=== PATIENT | male | born 1975 | race African-American/Black ===

== ENCOUNTER 2020-04-19 16:14 | Outpatient (REF) | payer OTHER, SELFPAY | END 2020-04-19 16:15 | disposition home or self-care (01) | LOC: HO.LAB 16:14 | PROVIDERS: PCP Internal Medicine; Visit Provider Internal Medicine | DX: Z20.828 Contact with and (suspected) exposure to other viral communicable diseases (principal) | CPT/HCPCS: 87635 ==

== ENCOUNTER 2020-09-05 10:39 | Outpatient (REF) | payer OTHER, SELFPAY ==
[2020-09-05 11:27] LABS: MANUAL DIFF FLAG NO
[2020-09-05 11:30] LABS: Glucose Urine UA NEG (NEG); Leukocyte Esterase Urine NEG (NEG); Nitrite Urine NEG (NEG); PH 8.5 (5.0-8.0); Urine Blood NEG (NEG); Urine Ketones NEG (NEG); Urine Protein NEG (NEG-TRACE)
[2020-09-05 11:33] LABS: Appearance Urine CLEAR; Color Urine YELLOW
[2020-09-05 11:34] LABS: Basophils Percent Auto 0.5 % (0-2); Hematocrit 44.9 % (42-52); Hemoglobin 14.9 g/dl (14.0-18.0); Imm Gran Abs Auto 0.01 X10*3/uL (0.00-0.03); Imm Gran Pct Auto 0.2 % (0.0-0.4); Lymphocytes Absolute Auto 1.6 X10*3/uL (1.2-4.9); Lymphocytes Percent Auto 38.2 % (20-40); Mean Corpuscular HGB Conc 33.2 g/dl (31.0-36.0); Mean Corpuscular Hemoglobin 27.7 pg (27.0-33.0); Mean Corpuscular Volume 83.6 fL (80-98); Mean Platelet Volume 10.2 fL (9.4-12.4); Monocytes Absolute Auto 0.5 X10*3/uL (0.1-1.2); Monocytes Percent Auto 10.9 % (2-11); Neutrophils Percent Auto 49.2 % (45-73); Platelet Count 241 X10*3/uL (160-400); Red Blood Count 5.37 X10*6/uL (4.60-5.80); Red Cell Distribution Width 12.4 % (11.0-16.0); White Blood Count 4.1 X10*3/uL (4.8-10.8)
[2020-09-05 12:22] LABS: Alanine Aminotransferase 21 U/L (0-40); Albumin Level 4.2 g/dL (3.5-5.0); Alkaline Phosphatase 54 U/L (39-117); Anion Gap 11 (12-20); Aspartate Amino Transferase 26 U/L (5-37); Bilirubin Total 0.5 mg/dL (0.0-1.0); Blood Urea Nitrogen 12 mg/dL (9-16); C Reactive Protein 0.05 mg/dL (< or = 0.50); Calcium 9.4 mg/dL (8.4-10.2); Carbon Dioxide 30 mmol/L (22-29); Chloride 104 mmol/L (96-108); Estimated Glomerular Filt Rate > 60; Glucose Random 98 mg/dL (60-115); Lipase 36 U/L (8-78); Sodium 140 mmol/L (135-145); Total Protein 7.6 g/dL (6.5-8.0)
[2020-09-07 15:16] LABS: Transglutaminase Ab IgG 8 U/mL
[2020-09-08 13:26] LABS: Gliadin Deamidated IgA Ab 4 Units; Gliadin Deamidated IgG Ab 3 Units
== END 2020-09-05 10:40 | disposition home or self-care (01) ==
LOC: HO.LAB 10:39
PROVIDERS: PCP Internal Medicine; Visit Provider Internal Medicine
DX: R10.9 Unspecified abdominal pain (principal); K21.9 Gastro-esophageal reflux disease without esophagitis; R30.0 Dysuria
CPT/HCPCS: 36415; 80053; 81003; 83516; 83690; 85025; 86140; 87086

== ENCOUNTER 2020-12-19 14:00 | Outpatient (REF) | payer OTHER, SELFPAY ==
--- NOTE | ~2020-12-19 | XR_ITS ---
EXAMINATION: XR PELVIS CLINICAL INFORMATION: Abdominal pain and back pain COMPARISON: Lumbar spine May [address] of the abdomen and pelvis April 2014 TECHNIQUE: AP view of the pelvis. FINDINGS: Bone alignment is normal. No fracture or dislocation is seen. The joint spaces are normal. There is stool in the colon. There is a small 2 x 4 mm radiopaque density that projects over the right lower pelvis and rectum. It is uncertain whether this represents something in the stool or could represent a small UVJ or bladder stone. This is not seen on previous lumbar spine x-ray May [address] of the abdomen and pelvis April 2014. XR/XR pelvis 1-2V IMPRESSION: Normal bones of the pelvis. 2 x 4 mm density in the right pelvis, question possible right UVJ or bladder stone versus something in the stool.
[2020-12-19 15:12] LABS: MANUAL DIFF FLAG NO
[2020-12-19 15:15] LABS: Basophils Percent Auto 0.7 % (0-2); Eosinophils Absolute Auto 0.1 X10*3/uL (0.0-0.4); Eosinophils Percent Auto 1.4 % (0-4); Hematocrit 41.4 % (42-52); Hemoglobin 13.7 g/dl (14.0-18.0); Lymphocytes Absolute Auto 1.7 X10*3/uL (1.2-4.9); Lymphocytes Percent Auto 39.6 % (20-40); Mean Corpuscular HGB Conc 33.1 g/dl (31.0-36.0); Mean Corpuscular Hemoglobin 27.7 pg (27.0-33.0); Mean Corpuscular Volume 83.8 fL (80-98); Mean Platelet Volume 10.8 fL (9.4-12.4); Monocytes Absolute Auto 0.4 X10*3/uL (0.1-1.2); Monocytes Percent Auto 9.6 % (2-11); Neutrophils Absolute Auto 2.1 X10*3/uL (2.0-8.3); Neutrophils Percent Auto 48.7 % (45-73); Platelet Count 217 X10*3/uL (160-400); Red Blood Count 4.94 X10*6/uL (4.60-5.80); Red Cell Distribution Width 12.6 % (11.0-16.0); White Blood Count 4.4 X10*3/uL (4.8-10.8)
[2020-12-19 15:16] LABS: Glucose Urine UA NEG (NEG); Leukocyte Esterase Urine NEG (NEG); Nitrite Urine NEG (NEG); Urine Blood NEG (NEG); Urine Ketones NEG (NEG); Urine Protein NEG (NEG-TRACE)
[2020-12-19 15:17] LABS: Appearance Urine HAZY; Color Urine YELLOW
[2020-12-19 15:36] LABS: Alanine Aminotransferase 16 U/L (0-40); Albumin Level 4.2 g/dL (3.5-5.0); Alkaline Phosphatase 55 U/L (39-117); Anion Gap 10 (12-20); Aspartate Amino Transferase 21 U/L (5-37); Bilirubin Total 0.5 mg/dL (0.0-1.0); Blood Urea Nitrogen 14 mg/dL (9-16); C Reactive Protein 0.03 mg/dL (< or = 0.50); Calcium 9.6 mg/dL (8.4-10.2); Carbon Dioxide 30 mmol/L (22-29); Chloride 105 mmol/L (96-108); Estimated Glomerular Filt Rate > 60; Glucose Random 78 mg/dL (60-115); Potassium 4.5 mmol/L (3.3-5.1); Sodium 140 mmol/L (135-145); Total Protein 7.3 g/dL (6.5-8.0)
[2020-12-19 16:01] LABS: Vitamin B12 1201 pg/mL (200-900)
== END 2020-12-19 14:01 | disposition home or self-care (01) ==
LOC: HO.LAB 14:00
PROVIDERS: PCP Internal Medicine; Visit Provider Internal Medicine
DX: R10.9 Unspecified abdominal pain (principal); M54.9 Dorsalgia, unspecified; E53.8 Deficiency of other specified B group vitamins; R30.0 Dysuria
CPT/HCPCS: 36415; 72170; 80053; 81003; 82607; 85025; 86140; 87086

== ENCOUNTER 2021-03-16 10:12 | Outpatient (REF) | payer OTHER, SELFPAY ==
--- NOTE | ~2021-03-16 | US_ITS ---
EXAMINATION: US ABDOMEN COMPLETE CLINICAL INFORMATION: Epigastric pain. COMPARISON: Ultrasound abdomen complete 10/02/2018 .CT abdomen and pelvis 05/04/2014. TECHNIQUE: Real-time imaging of the abdominal viscera. FINDINGS: PANCREAS: Normal. ABDOMINAL AORTA: The proximal, mid, and distal segments are normal in caliber. INFERIOR VENA CAVA: Visualized portions are normal. LIVER: Normal. The liver is normal in size. The liver contour is normal. Parenchymal echogenicity is normal. No focal hepatic lesion. There is no intrahepatic biliary duct dilatation seen. GALLBLADDER: Normal. The gallbladder is physiologically distended without evidence of stones, sludge, polyps, wall thickening or pericholecystic fluid. COMMON BILE DUCT: Normal in caliber measuring 0.2 cm in diameter. RIGHT KIDNEY: Normal. No hydronephrosis. No renal calculi or focal parenchymal lesions. The kidney measures 10.4 cm in maximum dimension. LEFT KIDNEY: Normal. No hydronephrosis. No renal calculi or focal parenchymal lesions. The kidney measures 11.9 cm in maximum dimension. SPLEEN: Normal. The spleen measures 9.7 cm in maximum dimension. FREE FLUID: None. US/US abdomen complete IMPRESSION: Unremarkable abdominal ultrasound. No acute findings seen.
== END 2021-03-16 10:13 | disposition home or self-care (01) ==
LOC: HO.HMGCX 10:12
PROVIDERS: PCP Internal Medicine; Visit Provider Internal Medicine Gastroenterology
DX: R10.13 Epigastric pain (principal)
CPT/HCPCS: 76700

== ENCOUNTER 2021-03-31 07:48 | Day surgery (SDC) | payer OTHER, SELFPAY ==
[2021-03-27 14:43] VITALS: BMI 22.8
--- NOTE | 2021-03-30 08:52 | HO.ANESPROP2 ---
Documented by User: Smitha Nowak NP 03/30/21 08:53 HPI - Anesthesia Eval Consult details Narrative: 45yo M for Upper Endoscopy [facility] Past Medical History Medical History GERD (gastroesophageal reflux disease) History of COVID-19 Surgical History Surgical History History of esophagogastroduodenoscopy (EGD) Hx of umbilical hernia repair Social History Social History Patient Tobacco Use Status: Never used Tobacco Advance Directives Information Provided: No Meds Allergies Allergy/AdvReac Type Severity Reaction Status Date / Time No Known Allergies Allergy Verified 03/31/21 07:59 Home Medications Medication Instructions Recorded Confirmed Last Taken Type cyanocobalamin (vitamin B-12) 1,000 mcg SUBCUT QMONTH 03/27/21 03/27/21 Unknown History 1,000 mcg/mL injection solution pantoprazole 40 mg tablet,delayed 40 mg PO DAILY 03/27/21 03/27/21 Unknown History release Exam Exam Date and Time: March 30, 2021 0852 Height,Weight and Vital Signs: Height 5 ft 10 in Weight 72.121 kg Pertinent Lab Results Pertinent Lab Results: Laboratory Tests 12/19/20 12/19/20 14:25 14:25 WBC 4.4 L Hgb 13.7 L Hct 41.4 L Plt Count 217 Sodium 140 Potassium 4.5 Chloride 105 Carbon Dioxide 30 H BUN 14 Creatinine 0.94 Assessment and Plan Assessment Anesthesia Assessment: Chart Reviewed Documented by User: Callie Cintron MD 03/31/21 08:54 [facility] Past Medical History Medical History GERD (gastroesophageal reflux disease) History of COVID-19 Surgical History Surgical History History of esophagogastroduodenoscopy (EGD) Hx of umbilical hernia repair History of Problems with Anesthesia: No Social History Social History Patient Tobacco Use Status: Never used Tobacco Advance Directives Information Provided: No Meds Allergies Allergy/AdvReac Type Severity Reaction Status Date / Time No Known Allergies Allergy Verified 03/31/21 07:59 Home Medications Medication Instructions Recorded Confirmed Last Taken Type cyanocobalamin (vitamin B-12) 1,000 mcg SUBCUT QMONTH 03/27/21 03/27/21 Unknown History 1,000 mcg/mL injection solution pantoprazole 40 mg tablet,delayed 40 mg PO DAILY 03/27/21 03/27/21 Unknown History release Exam Airway Mallampati Class: II TM Dist: >3cm Neck ROM: Full Loose/Missing/Broken Teeth: No Heart: RRR Lungs: CTA Assessment and Plan Assessment Anesthesia Assessment: Anesthesia Plan Discussed and Chart Reviewed Final Anesthetic Review History of Problems with Anesthesia: No NPO: Yes ASA Class: II Final Preanesthetic Review: Meds/Allgs Chart Reviewed, Consent Obtained/Reviewed and Anes Risks/Benef Reviewed Patient Risk: Low Procedure Risk: Intermediate Anesthetic Plan Anesthetic Plan: MAC: Disposition: Standard PACU
[2021-03-31 08:03] VITALS: BP 110/72; PULSE 71; RESP 16; TEMP 36.3; O2SAT 97
[2021-03-31] MEDS: Lactated Ringers 1,000 ML 100 ML IVCONT (08:12)
--- NOTE | 2021-03-31 08:30 | MHC.SHP ---
Pre-Procedural Eval Section A Date of Service: 03/31/21 Section B Chief Complaint: epigastric pain Details of Present Illness: see H&P no changes Relevant Family History (Specify if Yes): No Relevant Social History: None Present Medications: see Short Stay Collaborative assessment Medical History: No relevant PMH History of Previous Operations: No relevant previous surgery Allergies: Allergies Allergy/AdvReac Type Severity Reaction Status Date / Time No Known Allergies Allergy Verified 03/31/21 07:59 Review of Systems Sugical H&P ROS: Negative: Constitution, Cardiovascular, Respiratory, Neurological, Psychiatric, Hem-Onc, Allergic/Immunologic, Gastrointestinal, Genitourinary, Musculoskeletal, Integumentary, Endocrine and Eyes/Ears/Nose/Throat Exam Surgical H&P Exam: Normal: HEENT, Normal: Heart, Normal: Lungs, Normal: Extremities, Normal: Abdomen, Normal: Skin and Normal: Neurological Plan Diagnosis/Plan: Unchanged I have reviewed the history and physical and performed a pertinent physical examination on my patient. No changes have occurred unless specified.
[2021-03-31 09:09] VITALS: BP 109/69; PULSE 84; RESP 16; TEMP 36.2; O2SAT 100
--- NOTE | 2021-03-31 09:12 | P.BOP_ITS ---
Brief Operative Note Date of Service: 03/31/21 Pre-op diagnosis: epigastric pain Post-op diagnosis: same (gerd, gastric polyp) Surgeon: Bo Hernandez Anesthesia: MAC Was an Filler Machine Operator used for this Procedure?: No Estimated blood loss (mL): 5 Pathology: other (bxs antrum, gastric polyp, egj) Condition: stable Disposition: PACU
[2021-03-31 09:25] VITALS: BP 107/65; PULSE 76; RESP 16; O2SAT 98
[2021-03-31 09:40] VITALS: BP 102/63; PULSE 66; RESP 16; TEMP 36.2; O2SAT 98
[2021-03-31 09:52] VITALS: BP 107/70; PULSE 73; RESP 16; TEMP 36.2; O2SAT 98
--- NOTE | 2021-03-31 10:30 | OP_ITS ---
SURGEON: Bo Hernandez MD INDICATIONS: Epigastric pain. PREOPERATIVE DIAGNOSIS: POSTOPERATIVE DIAGNOSIS: PROCEDURE PERFORMED: Upper endoscopy with biopsy. ESTIMATED BLOOD LOSS: COMPLICATIONS: ANESTHESIA: ASSISTANTS: SPECIMENS: MEDICATIONS: Monitored anesthesia care. DESCRIPTION OF PROCEDURE: History and physical performed. The risks and benefits of the procedure were explained to the patient. Informed consent was obtained. The patient was placed in the left lateral decubitus position. The Olympus video gastroscope was introduced into the esophagus, stomach, and duodenum. Examination was performed and the scope was removed. He tolerated the procedure well and was taken to recovery area in stable condition. FINDINGS: ESOPHAGUS: The esophagus was normal. The EG junction was slightly irregular. There was subtle venous lakes in the esophagus. Biopsies were obtained from the EG junction. STOMACH: The stomach showed a single gastric polyp in the body on the greater curvature measuring approximately 5 to 6 mm. Single biopsies were obtained from the polyp. No other polyps were identified. Antral biopsies were obtained to rule out H pylori. DUODENUM: The bulb and second portion were normal. IMPRESSION: 1. Gastroesophageal reflux disease. 2. Gastric polyps. RECOMMENDATION: Follow up the biopsy results. MD ABIMBOLA Amezcua/EVANGELINA / [id number]
== END 2021-03-31 10:35 | disposition home or self-care (01) ==
PROVIDERS: PCP Internal Medicine; Visit Provider Internal Medicine Gastroenterology
PROC: 0DJ08ZZ Inspection of Upper Intestinal Tract, Via Natural or Artificial Opening Endoscopic (ICD-10-PCS; CPT 43235; principal; 2021-03-31 09:00)
DX: D3A.092 Benign carcinoid tumor of the stomach (principal); K21.9 Gastro-esophageal reflux disease without esophagitis; Z86.16 Personal history of COVID-19; Z79.899 Other long term (current) drug therapy
CPT/HCPCS: 43239; 88305; 88341; 88342; 88360

== ENCOUNTER 2021-04-13 16:30 | Outpatient (REF) | payer OTHER, SELFPAY ==
[2021-04-13 16:55] LABS: MANUAL DIFF FLAG NO
[2021-04-13 17:36] LABS: Basophils Percent Auto 0.6 % (0-2); Eosinophils Percent Auto 0.4 % (0-4); Hematocrit 39.8 % (42-52); Hemoglobin 13.3 g/dl (14.0-18.0); Imm Gran Abs Auto 0.01 X10*3/uL (0.00-0.03); Imm Gran Pct Auto 0.2 % (0.0-0.4); Lymphocytes Absolute Auto 1.7 X10*3/uL (1.2-4.9); Lymphocytes Percent Auto 31.3 % (20-40); Mean Corpuscular HGB Conc 33.4 g/dl (31.0-36.0); Mean Corpuscular Hemoglobin 27.8 pg (27.0-33.0); Mean Corpuscular Volume 83.1 fL (80-98); Mean Platelet Volume 10.7 fL (9.4-12.4); Monocytes Absolute Auto 0.4 X10*3/uL (0.1-1.2); Monocytes Percent Auto 7.9 % (2-11); Neutrophils Absolute Auto 3.2 X10*3/uL (2.0-8.3); Neutrophils Percent Auto 59.6 % (45-73); Platelet Count 243 X10*3/uL (160-400); Red Blood Count 4.79 X10*6/uL (4.60-5.80); White Blood Count 5.3 X10*3/uL (4.8-10.8)
[2021-04-13 17:53] LABS: Appearance Urine CLEAR; Color Urine YELLOW; Glucose Urine UA NEG (NEG); Leukocyte Esterase Urine NEG (NEG); Nitrite Urine NEG (NEG); PH 6.5 (5.0-8.0); Specific Gravity - Urine <= 1.005 (1.005-1.025); Urine Blood NEG (NEG); Urine Ketones NEG (NEG); Urine Protein NEG (NEG-TRACE)
[2021-04-13 18:06] LABS: Alanine Aminotransferase 19 U/L (0-40); Albumin Level 4.2 g/dL (3.5-5.0); Alkaline Phosphatase 51 U/L (39-117); Anion Gap 12 (12-20); Aspartate Amino Transferase 24 U/L (5-37); Bilirubin Total 0.6 mg/dL (0.0-1.0); Blood Urea Nitrogen 14 mg/dL (9-16); C Reactive Protein 0.03 mg/dL (< or = 0.50); Calcium 9.4 mg/dL (8.4-10.2); Carbon Dioxide 25 mmol/L (22-29); Chloride 105 mmol/L (96-108); Cholesterol 192 mg/dL; Estimated Glomerular Filt Rate > 60; Glucose Random 137 mg/dL (60-115); HDL Cholesterol 48 mg/dL; LDL Cholesterol Calculated 127 mg/dl; Potassium 4.1 mmol/L (3.3-5.1); Sodium 138 mmol/L (135-145); Total Protein 7.2 g/dL (6.5-8.0); Triglycerides 86 mg/dL
[2021-04-13 18:25] LABS: Prostate Specific Antigen 0.48 ng/mL (<0.05-4.0)
== END 2021-04-13 16:31 | disposition home or self-care (01) ==
LOC: HO.LAB 16:30
PROVIDERS: PCP Internal Medicine; Visit Provider Internal Medicine
DX: Z00.00 Encounter for general adult medical examination without abnormal findings (principal); Z12.5 Encounter for screening for malignant neoplasm of prostate; R35.1 Nocturia
CPT/HCPCS: 36415; 80053; 80061; 81003; 84153; 85025; 86140; 87086

== ENCOUNTER 2021-04-21 09:01 | Day surgery (SDC) | payer OTHER, SELFPAY ==
--- NOTE | 2021-04-20 10:27 | P.CONAN_ITS ---
Documented by User: Smitha Nowak NP 04/20/21 10:29 HPI - Anesthesia Eval Consult details Narrative: 45yo M for Upper Endoscopy s/p EGD 03/2021 (gastric polyp = neuroendocrine tumor) PMF Active Problems Active Problems: All Active Problems (Updated 04/18/21 @ 16:38 by Maribeth Costello MD) Carcinoid tumor (Acute) Past Medical History Medical History (Updated 04/18/21 @ 16:38 by Maribeth Costello MD) GERD (gastroesophageal reflux disease) History of COVID-19 Neuroendocrine tumor Family History Family History (Updated 04/18/21 @ 14:31 by Guerline Werner) Father Cancer Paternal Grandmother Colon cancer Surgical History Surgical History (Updated 04/18/21 @ 15:39 by Maribeth Costello MD) History of esophagogastroduodenoscopy (EGD) History of tonsillectomy Hx of umbilical hernia repair History of Problems with Anesthesia: No Social History Social History (Updated 04/18/21 @ 14:31 by Guerline Werner) Alcohol intake: current Alcohol intake frequency: holidays/special occasions only Patient Tobacco Use Status: Never used Tobacco Advance Directives: No Advance Directives Information Provided: Yes Meds Allergies Allergy/AdvReac Type Severity Reaction Status Date / Time No Known Allergies Allergy Verified 04/18/21 14:31 Home Medications Medication Instructions Recorded Confirmed Last Taken Type cyanocobalamin (vitamin B-12) 1,000 mcg SUBCUT QMONTH 03/27/21 04/18/21 Unknown History 1,000 mcg/mL injection solution pantoprazole 40 mg tablet,delayed 40 mg PO DAILY 03/27/21 04/18/21 Unknown History release multivitamin 1 tab PO DAILY 04/18/21 04/18/21 Unknown History protein supplement 1 ea PO 3XW 04/18/21 04/18/21 Unknown History vitamin E 400 unit capsule 400 unit PO DAILY 04/18/21 04/18/21 Unknown History zinc 100 mg tablet 100 mg PO DAILY 04/18/21 04/18/21 Unknown History Exam Exam Date and Time: April 20, 2021 1027 Pertinent Lab Results Pertinent Lab Results: Laboratory Tests 04/13/21 04/13/21 16:54 16:54 WBC 5.3 Hgb 13.3 L Hct 39.8 L Plt Count 243 Sodium 138 Potassium 4.1 Chloride 105 Carbon Dioxide 25 BUN 14 Creatinine 1.07 Assessment and Plan Assessment Anesthesia Assessment: Chart Reviewed Final Anesthetic Review History of Problems with Anesthesia: No Documented by User: Hi Smith MD 04/21/21 09:11 [facility] Past Medical History Medical History (Updated 04/18/21 @ 16:38 by Maribeth Costello MD) GERD (gastroesophageal reflux disease) History of COVID-19 Neuroendocrine tumor Family History Family History (Updated 04/18/21 @ 14:31 by Guerline Werner) Father Cancer Paternal Grandmother Colon cancer Family history of problems with anesthesia: No Surgical History Surgical History (Updated 04/18/21 @ 15:39 by Maribeth Costello MD) History of esophagogastroduodenoscopy (EGD) History of tonsillectomy Hx of umbilical hernia repair Social History Social History (Updated 04/18/21 @ 14:31 by Guerline Werner) Alcohol intake: current Alcohol intake frequency: holidays/special occasions only Patient Tobacco Use Status: Never used Tobacco Advance Directives: No Advance Directives Information Provided: Yes Meds Allergies Allergy/AdvReac Type Severity Reaction Status Date / Time No Known Allergies Allergy Verified 04/18/21 14:31 Home Medications Medication Instructions Recorded Confirmed Last Taken Type cyanocobalamin (vitamin B-12) 1,000 mcg SUBCUT QMONTH 03/27/21 04/18/21 Unknown History 1,000 mcg/mL injection solution pantoprazole 40 mg tablet,delayed 40 mg PO DAILY 03/27/21 04/18/21 Unknown History release multivitamin 1 tab PO DAILY 04/18/21 04/18/21 Unknown History protein supplement 1 ea PO 3XW 04/18/21 04/18/21 Unknown History vitamin E 400 unit capsule 400 unit PO DAILY 04/18/21 04/18/21 Unknown History zinc 100 mg tablet 100 mg PO DAILY 04/18/21 04/18/21 Unknown History Exam Airway Mallampati Class: II TM Dist: >3cm Neck ROM: Full Loose/Missing/Broken Teeth: No Heart: [id number] Lungs: cta b/l Assessment and Plan Assessment Anesthesia Assessment: Anesthesia Plan Discussed Final Anesthetic Review Family History of Problems with Anesthesia: No NPO: Yes ASA Class: II Final Preanesthetic Review: No Changes in Pt Med Stat, Meds/Allgs Chart Reviewed, Consent Obtained/Reviewed and Anes Risks/Benef Reviewed Patient Risk: Intermediate Procedure Risk: Low Assessment/Block/Sedation in SS: Assess/Block/Sedation-SS Anesthetic Plan Anesthetic Plan: MAC: and Agree w/ Assess. and Plan Disposition: Standard PACU
[2021-04-21] VITALS (9 sets, daily range): BP systolic 83–107; BP diastolic 41–77; PULSE 64–76; RESP 16; TEMP 36.6–36.8; O2SAT 99; BMI 22.9
[2021-04-21] MEDS: Lactated Ringers 1,000 ML 100 ML IVCONT (09:30)
--- NOTE | 2021-04-21 10:18 | MHC.SHP ---
Pre-Procedural Eval Section A Date of Service: 04/21/21 The patient is an INPATIENT: No Changes since office visit: No Cold of Flu in the past 2 weeks, No New Medical Problems, No Changes in Medication and No Patient answered all questions The History & Physical has been completed within 30 days and I have reviewed it.: Yes Section B Chief Complaint: polyp of stomach and duoderm Allergies: Allergies Allergy/AdvReac Type Severity Reaction Status Date / Time No Known Allergies Allergy Verified 04/18/21 14:31 Plan I have reviewed the history and physical and performed a pertinent physical examination on my patient. No changes have occurred unless specified.
--- NOTE | 2021-04-21 11:00 | P.BOP_ITS ---
Brief Operative Note Date of Service: 04/21/21 Pre-op diagnosis: gastric carcinoid Surgeon: Bo Hernandez Anesthesia: MAC Was an Sports Administrator used for this Procedure?: No Estimated blood loss (mL): 10 Pathology: other (multiple biopsies) Condition: stable Disposition: PACU
--- NOTE | 2021-04-21 11:36 | OP_ITS ---
SURGEON: Bo Hernandez MD INDICATIONS: Gastric carcinoid. PREOPERATIVE DIAGNOSIS: POSTOPERATIVE DIAGNOSIS: PROCEDURE PERFORMED: Upper endoscopy with biopsy and Vivian ink injection. ESTIMATED BLOOD LOSS: COMPLICATIONS: ANESTHESIA: ASSISTANTS: SPECIMENS: MEDICATIONS: Monitored anesthesia care. DESCRIPTION OF PROCEDURE: History and physical performed. The risks and benefits of the procedure were explained to the patient. Informed consent was obtained. The patient was placed in left lateral decubitus position. The Olympus video gastroscope was introduced into the esophagus, stomach, and duodenum. Examination was performed and the scope was removed. He tolerated the procedure well and was taken to recovery area in stable condition. FINDINGS: Esophagus: The esophagus was normal. There was no esophagitis. Venous lakes were present. Stomach: The stomach showed a polyp at about 45 cm on the greater curvature consistent with the location of his prior carcinoid. This was biopsied after attempts to snare were not successful. The base of the polyp was cauterized. The site was injected with 2 mL of Vivian ink for future reference. The location of the polyp was on the greater curvature slightly toward the anterior wall at 45 cm from the incisors. Next, biopsies were obtained from the posterior wall, which was slightly nodular, but no definite lesion was identified. Antral biopsies were obtained as were biopsies from the anterior wall of fundus and the vicinity of the polyp. Duodenum: The bulb and second portion were normal. IMPRESSION: Gastric carcinoid. RECOMMENDATION: Follow up the biopsy results. MD ABIMBOLA Amezcua/JESSICAL / [id number] MTDD
== END 2021-04-21 12:27 | disposition home or self-care (01) ==
PROVIDERS: PCP Internal Medicine; Visit Provider Internal Medicine Gastroenterology
PROC: 0DJ08ZZ Inspection of Upper Intestinal Tract, Via Natural or Artificial Opening Endoscopic (ICD-10-PCS; CPT 43235; principal; 2021-04-21 10:10)
DX: D3A.092 Benign carcinoid tumor of the stomach (principal); R10.13 Epigastric pain; K29.40 Chronic atrophic gastritis without bleeding
CPT/HCPCS: 43239; 88305; 88341; 88342; J3010

== ENCOUNTER 2021-07-04 14:45 | Outpatient (REF) | payer OTHER, SELFPAY | END 2021-07-04 14:46 | disposition home or self-care (01) | LOC: HO.LAB 14:45 | PROVIDERS: PCP Internal Medicine; Visit Provider Internal Medicine | DX: Z20.822 Contact with and (suspected) exposure to COVID-19 (principal) | CPT/HCPCS: C9803; U0003; U0005 ==

== ENCOUNTER 2021-08-24 16:52 | Outpatient (REF) | payer OTHER, SELFPAY ==
[2021-08-24 17:03] LABS: MANUAL DIFF FLAG NO
[2021-08-24 17:54] LABS: Basophils Percent Auto 0.4 % (0-2); Eosinophils Absolute Auto 0.1 X10*3/uL (0.0-0.4); Eosinophils Percent Auto 1.1 % (0-4); Hematocrit 42.7 % (42.0-52.0); Hemoglobin 14.1 g/dl (14.0-18.0); Imm Gran Abs Auto 0.01 X10*3/uL (0.00-0.03); Imm Gran Pct Auto 0.2 % (0.0-0.4); Lymphocytes Absolute Auto 1.8 X10*3/uL (1.2-4.9); Lymphocytes Percent Auto 34.7 % (20-40); Mean Corpuscular Hemoglobin 27.4 pg (27.0-33.0); Mean Corpuscular Volume 83.1 fL (80.0-98.0); Mean Platelet Volume 10.8 fL (9.4-12.4); Monocytes Absolute Auto 0.5 X10*3/uL (0.1-1.2); Monocytes Percent Auto 8.6 % (2-11); Neutrophils Absolute Auto 2.9 x10*3/uL (2.0-8.3); Platelet Count 238 X10*3/uL (160-400); Red Blood Count 5.14 X10*6/uL (4.60-5.80); Red Cell Distribution Width 12.7 % (11.0-16.0); White Blood Count 5.2 X10*3/uL (4.8-10.8)
[2021-08-24 18:08] LABS: Alanine Aminotransferase 18 U/L (0-40); Albumin Level 4.3 g/dL (3.5-5.0); Alkaline Phosphatase 54 U/L (39-117); Aspartate Amino Transferase 24 U/L (5-37); Bilirubin Direct < 0.2 mg/dL (0.0-0.5); Bilirubin Total 0.4 mg/dL (0.0-1.0); Lipase 43 U/L (8-78); Total Protein 7.7 g/dL (6.5-8.0)
== END 2021-08-24 16:53 | disposition home or self-care (01) ==
LOC: HO.LAB 16:52
PROVIDERS: Internal Medicine; PCP Internal Medicine; Visit Provider Internal Medicine Gastroenterology
DX: R13.10 Dysphagia, unspecified (principal)
CPT/HCPCS: 36415; 80076; 83690; 85025

== ENCOUNTER 2021-09-15 08:00 | Outpatient (REF) | payer OTHER, SELFPAY ==
--- NOTE | ~2021-09-15 | US_ITS ---
EXAMINATION: US ABDOMEN COMPLETE CLINICAL INFORMATION: Epigastric pain. COMPARISON: Ultrasound abdomen complete 03/16/2021 and 10/02/2018. CT abdomen and pelvis 05/04/2014. TECHNIQUE: Real-time imaging of the abdominal viscera. FINDINGS: PANCREAS: Not well visualized. ABDOMINAL AORTA: The proximal, mid, and distal segments are normal in caliber. INFERIOR VENA CAVA: Visualized portions are normal. LIVER: Normal. The liver is normal in size. The liver contour is normal. Parenchymal echogenicity is normal. No focal hepatic lesion. There is no intrahepatic biliary duct dilatation seen. GALLBLADDER: Normal. The gallbladder is physiologically distended without evidence of stones, sludge, polyps, wall thickening or pericholecystic fluid. COMMON BILE DUCT: Normal in caliber measuring 0.3 cm in diameter. RIGHT KIDNEY: Not well visualized. No hydronephrosis. No renal calculi or focal parenchymal lesions. The kidney measures 11.0 cm in maximum dimension. LEFT KIDNEY: Not well visualized No hydronephrosis. No renal calculi or focal parenchymal lesions. The kidney measures 12.3 cm in maximum dimension. SPLEEN: Not well visualized The spleen measures 7.8 cm in maximum dimension. FREE FLUID: None. US/US abdomen complete IMPRESSION: Limited exam. In particular visualization of the bilateral kidneys, pancreas and spleen is limited.
== END 2021-09-15 08:01 | disposition home or self-care (01) ==
LOC: HO.US 08:00
PROVIDERS: PCP Internal Medicine; Visit Provider Internal Medicine Gastroenterology
DX: R10.13 Epigastric pain (principal)
CPT/HCPCS: 76700

== ENCOUNTER 2022-01-11 16:43 | Outpatient (REF) | payer OTHER, SELFPAY ==
[2022-01-11 16:54] LABS: MANUAL DIFF FLAG NO
[2022-01-11 17:49] LABS: Basophils Percent Auto 0.5 % (0-2); Eosinophils Absolute Auto 0.1 X10*3/uL (0.0-0.4); Eosinophils Percent Auto 1.1 % (0-4); Hematocrit 41.9 % (42.0-52.0); Imm Gran Abs Auto 0.03 X10*3/uL (0.00-0.03); Imm Gran Pct Auto 0.7 % (0.0-0.4); Lymphocytes Absolute Auto 1.8 X10*3/uL (1.2-4.9); Lymphocytes Percent Auto 41.8 % (20-40); Mean Corpuscular HGB Conc 33.4 g/dl (31.0-36.0); Mean Corpuscular Hemoglobin 27.8 pg (27.0-33.0); Mean Corpuscular Volume 83.1 fL (80.0-98.0); Mean Platelet Volume 10.5 fL (9.4-12.4); Monocytes Absolute Auto 0.4 X10*3/uL (0.1-1.2); Monocytes Percent Auto 8.9 % (2-11); Neutrophils Absolute Auto 2.1 x10*3/uL (2.0-8.3); Platelet Count 258 X10*3/uL (160-400); Red Blood Count 5.04 X10*6/uL (4.60-5.80); White Blood Count 4.4 X10*3/uL (4.8-10.8)
[2022-01-11 18:14] LABS: Alanine Aminotransferase 21 U/L (0-40); Albumin Level 4.1 g/dL (3.5-5.0); Alkaline Phosphatase 47 U/L (39-117); Anion Gap 9 (12-20); Aspartate Amino Transferase 24 U/L (5-37); Bilirubin Total 0.3 mg/dL (0.0-1.0); Blood Urea Nitrogen 13 mg/dL (9-16); C Reactive Protein 0.06 mg/dL (< or = 0.50); Calcium 8.9 mg/dL (8.4-10.2); Carbon Dioxide 29 mmol/L (22-29); Chloride 105 mmol/L (96-108); Estimated Glomerular Filt Rate > 60; Glucose Random 81 mg/dL (60-115); Lipase 54 U/L (8-78); Potassium 4.4 mmol/L (3.3-5.1); Sodium 139 mmol/L (135-145); Total Protein 7.3 g/dL (6.5-8.0)
== END 2022-01-11 16:44 | disposition home or self-care (01) ==
LOC: HO.LAB 16:43
PROVIDERS: PCP Internal Medicine; Visit Provider Internal Medicine
DX: K21.9 Gastro-esophageal reflux disease without esophagitis (principal); R10.9 Unspecified abdominal pain
CPT/HCPCS: 36415; 80053; 83690; 85025; 86140

== ENCOUNTER → 2022-06-05 07:07 | Day surgery (SDC) | payer OTHER, SELFPAY ==
--- NOTE | 2022-06-04 12:51 | HO.ANESPROP2 ---
HPI - Anesthesia Eval Consult details Narrative: 46yo M for Upper Endoscopy s/p EGD 04/2021 with MAC PMFSH Active Problems Active Problems: All Active Problems (Updated 05/01/22 @ 16:46 by Maribeth Costello MD) Carcinoid tumor (Chronic) Past Medical History Medical History (Updated 05/01/22 @ 16:46 by Maribeth Costello MD) GERD (gastroesophageal reflux disease) History of COVID-19 Neuroendocrine tumor Family History Family History Father Cancer Paternal Grandmother Colon cancer Family history of problems with anesthesia: No Surgical History Surgical History History of esophagogastroduodenoscopy (EGD) History of tonsillectomy Hx of umbilical hernia repair History of Problems with Anesthesia: No Social History Social History (Updated 05/01/22 @ 15:09 by Emma Mcallister) Household Members: Spouse, Family and Children Housing: House Alcohol intake: current Alcohol intake frequency: holidays/special occasions only Patient Tobacco Use Status: Never used Tobacco service: No Current occupational status: employed Meds Allergies Allergy/AdvReac Type Severity Reaction Status Date / Time No Known Allergies Allergy Verified 05/09/21 16:08 Home Medications Medication Instructions Recorded Confirmed Last Taken Type cyanocobalamin (vitamin B-12) 1,000 mcg subcut QMONTH 03/27/21 05/01/22 Unknown History 1,000 mcg/mL injection solution pantoprazole 40 mg tablet,delayed 40 mg PO DAILY 03/27/21 05/01/22 Unknown History release multivitamin 1 tab PO DAILY 04/18/21 05/01/22 Unknown History protein supplement 1 ea PO 3XW 04/18/21 05/01/22 Unknown History vitamin E 268 mg (400 unit) capsule 400 unit PO DAILY 04/18/21 05/01/22 Unknown History zinc 100 mg tablet 100 mg PO DAILY 04/18/21 05/01/22 Unknown History Exam Exam Date and Time: June 04, 2022 1251 Pertinent Lab Results Pertinent Lab Results: Laboratory Tests 01/11/22 01/11/22 16:53 16:53 WBC 4.4 L Hgb 14.0 Hct 41.9 L Plt Count 258 Sodium 139 Potassium 4.4 Chloride 105 Carbon Dioxide 29 BUN 13 Creatinine 1.05 Assessment and Plan Assessment Anesthesia Assessment: Chart Reviewed Final Anesthetic Review Family History of Problems with Anesthesia: No History of Problems with Anesthesia: No
[2022-06-05 07:33] VITALS: BP 102/71; PULSE 78; RESP 18; TEMP 36.3; O2SAT 97; BMI 22.9
[2022-06-05] MEDS: Lactated Ringers 1,000 ML 100 ML IVCONT (08:07)
[2022-06-05 08:33] LABS: Influenza A PCR NEGATIVE (Negative); Influenza B PCR NEGATIVE (Negative); Resp Syncy Virus RNA Qual PCR NEGATIVE (Negative); SARS COV2 PCR INHOUSE POSITIVE (Negative)
--- NOTE | 2022-06-05 08:56 | PC.NURSE ---
Upon arrival to [facility] patient questioned cough/cold/flu symptoms recently patient states Yes I had the flu last week . Described symptoms as body aches, runny nose, cough, no fever or anything else. But nothing now. Anesthesia Dr Gallego notified. Patient swabbed for flu/rsv/covid per orders. Swab positive for SARS - Cov2. Case cancelled per anesthesia & Dr Hernandez. Patient notified, IV removed, given belongings & sent home. [place] 4 to be sanitized by EVS
== END ==
PROVIDERS: Anesthesiology; PCP Internal Medicine; Visit Provider Internal Medicine Gastroenterology
DX: D3A.092 Benign carcinoid tumor of the stomach (principal); Z53.09 Procedure and treatment not carried out because of other contraindication; R10.13 Epigastric pain; U07.1 COVID-19
CPT/HCPCS: 0241U

== ENCOUNTER 2022-07-24 06:35 | Day surgery (SDC) | payer OTHER, SELFPAY ==
[2022-07-24 06:58] VITALS: BP 112/73; PULSE 80; RESP 18; TEMP 36.6; O2SAT 100; BMI 22.9
[2022-07-24 07:09] VITALS: BMI 22.9
--- NOTE | 2022-07-24 07:30 | P.HPSUR_ITS ---
Pre-Procedural Eval Section A Date of Service: 07/24/22 Section B Chief Complaint: Benign carcinoid tumor of the stomach,Epigastric p Details of Present Illness: see H&P no changes Relevant Family History (Specify if Yes): No Relevant Social History: None Present Medications: see Short Stay Collaborative assessment Medical History: No relevant PMH History of Previous Operations: No relevant previous surgery Allergies: Allergies Allergy/AdvReac Type Severity Reaction Status Date / Time No Known Allergies Allergy Verified 05/09/21 16:08 Review of Systems Sugical H&P ROS: Negative: Constitution, Cardiovascular, Respiratory, Neurol ogical, Psychiatric, Hem-Onc, Allergic/Immunologic, Gastrointestinal, Genitourinary, Musculoskeletal, Integumentary, Endocrine and Eyes/Ears/Nose/Throat Exam Surgical H&P Exam: Normal: HEENT, Normal: Heart, Normal: Lungs, Normal: Extremities, Normal: Abdomen, Normal: Skin and Normal: Neurological Plan I have reviewed the history and physical and performed a pertinent physical examination on my patient. No changes have occurred unless specified. Time Spent With Patient Time: Total time managing care of this patient today ____ minutes.
[2022-07-24] MEDS: Lactated Ringers 1,000 ML 100 ML IVCONT (07:31)
--- NOTE | 2022-07-24 07:37 | HO.ANESPROP2 ---
HPI - Anesthesia Eval Consult details Narrative: 46 yo male patient for EGD PMFSH Active Problems Active Problems: All Active Problems (Updated 05/01/22 @ 16:46 by Maribeth Costello MD) Carcinoid tumor (Chronic) Past Medical History Medical History GERD (gastroesophageal reflux disease) History of COVID-19 Neuroendocrine tumor Family History Family History Father Cancer Paternal Grandmother Colon cancer Family history of problems with anesthesia: No Surgical History Surgical History History of esophagogastroduodenoscopy (EGD) History of tonsillectomy Hx of umbilical hernia repair History of Problems with Anesthesia: No Social History Social History (Updated 05/01/22 @ 15:09 by Emma Mcallister) Household Members: Spouse, Family and Children Housing: House Alcohol intake: current Alcohol intake frequency: holidays/special occasions only Patient Tobacco Use Status: Former Tobacco user Use of substances other than those prescribed or required for medical reasons: No Are you DNR?: No Advance Directives: No Advance Directives Information Provided: Yes service: No Current occupational status: employed Meds Allergies Allergy/AdvReac Type Severity Reaction Status Date / Time No Known Allergies Allergy Verified 05/09/21 16:08 Active Medications: Current Medications Lactated Ringer's (Lr) 1,000 mls @ 100 mls/hr IVCONT .Q10H ED Last Admin: 07/24/22 07:31 Dose: 100 mls/hr Home Medications Medication Instructions Recorded Confirmed Last Taken Type cyanocobalamin (vitamin B-12) 1,000 mcg subcut QMONTH 03/27/21 06/05/22 Unknown History 1,000 mcg/mL injection solution pantoprazole 40 mg tablet,delayed 40 mg PO DAILY 03/27/21 06/05/22 Unknown History release multivitamin 1 tab PO DAILY 04/18/21 06/05/22 Unknown History protein supplement 1 ea PO 3XW 04/18/21 06/05/22 Unknown History vitamin E 268 mg (400 unit) capsule 400 unit PO DAILY 04/18/21 06/05/22 Unknown History zinc 100 mg tablet 100 mg PO DAILY 04/18/21 06/05/22 Unknown History Exam Exam Date and Time: July 24, 2022 0737 Height,Weight and Vital Signs: Height 5 ft 10 in Weight 72.575 kg Last Vital Signs Temp 97.9 F 07/24/22 06:58 Pulse 80 07/24/22 06:58 Resp 18 07/24/22 06:58 BP 112/73 07/24/22 06:58 Pulse Ox 100 07/24/22 06:58 O2 Del Method 07/24/22 06:58 Airway Mallampati Class: II TM Dist: >3cm Neck ROM: Full Loose/Missing/Broken Teeth: No (Denies broken, loose, missing teeth) Heart: RRR Lungs: CTAB Assessment and Plan Assessment Anesthesia Assessment: Anesthesia Plan Discussed and Chart Reviewed Final Anesthetic Review Family History of Problems with Anesthesia: No History of Problems with Anesthesia: No NPO: Yes ASA Class: II Final Preanesthetic Review: No Changes in Pt Med Stat, Meds/Allgs Chart Reviewed, Consent Obtained/Reviewed and Anes Risks/Benef Reviewed Patient Risk: Low Procedure Risk: Low Assessment/Block/Sedation in SS: Assess/Block/Sedation-SS Anesthetic Plan Anesthetic Plan: MAC: Disposition: Standard PACU
--- NOTE | 2022-07-24 08:03 | PM.OP ---
Brief Operative Note Date of Service: 07/24/22 Pre-op diagnosis: gastric carcinoid abd pain Post-op diagnosis: same Procedure: egd Surgeon: Bo Hernandez Anesthesia: MAC Was an Round Cutter Operator used for this Procedure?: No Estimated blood loss (mL): 3 Pathology: other Condition: stable Disposition: PACU
[2022-07-24 08:09] VITALS: BP 99/64; PULSE 79; RESP 20; TEMP 36.8; O2SAT 100
[2022-07-24 08:24] VITALS: BP 102/69; PULSE 78; RESP 17; O2SAT 98
[2022-07-24 08:39] VITALS: BP 102/70; PULSE 83; RESP 18; O2SAT 99
[2022-07-24 08:54] VITALS: BP 102/64; PULSE 73; RESP 18; TEMP 36.8; O2SAT 99
--- NOTE | 2022-07-24 09:24 | OP_ITS ---
SURGEON: Bo Hernandez MD INDICATIONS: Abdominal pain and gastric carcinoid. PREOPERATIVE DIAGNOSIS: POSTOPERATIVE DIAGNOSIS: PROCEDURE PERFORMED: Upper endoscopy with biopsy. ESTIMATED BLOOD LOSS: COMPLICATIONS: ANESTHESIA: ASSISTANTS: SPECIMENS: MEDICATIONS: Monitored anesthesia care. DESCRIPTION OF PROCEDURE: History and physical performed. The risks and benefits of the procedure were explained to the patient. Informed consent was obtained. The patient was placed in the left lateral decubitus position. The Olympus video gastroscope was introduced into the esophagus, stomach, and duodenum. Examination was performed. The scope was removed. He tolerated the procedure well and was taken to recovery in stable condition. FINDINGS: The procedure was performed on 07/24/2022. FINDINGS: 1. Esophagus: The esophagus was normal. Biopsies were obtained from the EG junction. 2. Stomach: The stomach showed some scarring at the site of the previous gastric carcinoid from prior biopsy and cauterization. There was evidence of prior injection of Vivian ink at the site. The Vivian ink had basically spread along the anterior wall diffusely. Biopsies were obtained from the antrum on the lesser and greater curvature in the body on the lesser and greater curvature and on the incisura. There was a small polyp on the lesser curvature measuring less than 5 mm, which was also biopsied. Biopsies were obtained from the site of the prior polypectomy with previously identified carcinoid was. 3. Duodenum: The bulb and second portion were normal. IMPRESSION: Gastric polyp, history of gastric carcinoid. RECOMMENDATION: Follow up the biopsy results. MD ABIMBOLA Amezcua/EVANGELINA / [id number]
== END 2022-07-24 09:33 | disposition home or self-care (01) ==
PROVIDERS: PCP Internal Medicine; Visit Provider Internal Medicine Gastroenterology
PROC: 0DJ08ZZ Inspection of Upper Intestinal Tract, Via Natural or Artificial Opening Endoscopic (ICD-10-PCS; CPT 43235; principal; 2022-07-24 07:30)
DX: R10.13 Epigastric pain (principal); Z85.020 Personal history of malignant carcinoid tumor of stomach; K31.7 Polyp of stomach and duodenum
CPT/HCPCS: 43239; 88305; 88342; J2250

== ENCOUNTER 2022-10-29 13:55 | Outpatient (REF) | payer OTHER, SELFPAY ==
--- NOTE | ~2022-10-29 | XR_ITS ---
EXAMINATION: XR MANDIBLE CLINICAL INFORMATION: Left-sided jaw pain COMPARISON: None available. TECHNIQUE: 4 views of the mandible were obtained. FINDINGS: There are no fractures or dislocations. No bone, joint or soft tissue abnormality is demonstrated. XR/XR mandible min 4V IMPRESSION: Unremarkable mandible examination.
== END 2022-10-29 13:56 | disposition home or self-care (01) ==
LOC: HO.XRAY 13:55
PROVIDERS: PCP Internal Medicine; Visit Provider Internal Medicine
DX: R68.84 Jaw pain (principal)
CPT/HCPCS: 70110

== ENCOUNTER 2023-08-17 07:44 | Outpatient (REF) | payer OTHER, SELFPAY ==
[2023-08-17 08:21] LABS: MANUAL DIFF FLAG NO
[2023-08-17 09:13] LABS: Basophils Percent Auto 0.7 % (0-2); Eosinophils Absolute Auto 0.1 X10*3/uL (0.0-0.4); Eosinophils Percent Auto 1.6 % (0-4); Hematocrit 45.7 % (42.0-52.0); Hemoglobin 15.1 g/dl (14.0-18.0); Imm Gran Abs Auto 0.01 X10*3/uL (0.00-0.03); Imm Gran Pct Auto 0.2 % (0.0-0.4); Lymphocytes Absolute Auto 1.5 X10*3/uL (1.2-4.9); Lymphocytes Percent Auto 32.4 % (20-40); Mean Corpuscular Hemoglobin 27.9 pg (27.0-33.0); Mean Corpuscular Volume 84.3 fL (80.0-98.0); Mean Platelet Volume 10.4 fL (9.4-12.4); Monocytes Absolute Auto 0.4 X10*3/uL (0.1-1.2); Monocytes Percent Auto 9.4 % (2-11); Neutrophils Absolute Auto 2.5 x10*3/uL (2.0-8.3); Neutrophils Percent Auto 55.7 % (45-73); Platelet Count 236 X10*3/uL (160-400); Red Blood Count 5.42 X10*6/uL (4.60-5.80); Red Cell Distribution Width 13.1 % (11.0-16.0); White Blood Count 4.5 X10*3/uL (4.8-10.8)
[2023-08-17 10:16] LABS: Alanine Aminotransferase 18 U/L (0-40); Albumin Level 4.1 g/dL (3.5-5.0); Alkaline Phosphatase 58 U/L (39-117); Anion Gap 11 (12-20); Aspartate Amino Transferase 24 U/L (5-37); Bilirubin Total 0.5 mg/dL (0.0-1.0); Blood Urea Nitrogen 14 mg/dL (9-16); C Reactive Protein < 0.04 mg/dL (< or = 0.50); Calcium 9.9 mg/dL (8.4-10.2); Carbon Dioxide 28 mmol/L (22-29); Chloride 104 mmol/L (96-108); Cholesterol 212 mg/dL (<200); Estimated Glomerular Filt Rate > 60; Glucose Random 98 mg/dL (60-115); HDL Cholesterol 55 mg/dL (>40); LDL Cholesterol Calculated 143 mg/dL (<100); Potassium 4.4 mmol/L (3.3-5.1); Sodium 139 mmol/L (135-145); Total Protein 7.7 g/dL (6.5-8.0); Triglycerides 71 mg/dL (<150)
[2023-08-17 10:23] LABS: Appearance Urine Clear; Color Urine Yellow; Glucose Urine UA Negative (Negative); Leukocyte Esterase Urine Negative (Negative); Nitrite Urine Negative (Negative); PH 5.5 (5.0-9.0); Specific Gravity - Urine 1.025 (1.005-1.025); Urine Blood Negative (Negative); Urine Ketones Trace mg/dL (Negative); Urine Protein Negative (Neg-Trace)
[2023-08-17 10:30] LABS: Prostate Specific Antigen 0.72 ng/mL (<0.05-4.0)
[2023-08-17 10:50] LABS: Bacteria Urine None Seen (None Seen); Hyaline Casts Urine 0-2 /LPF (0-2); RBC Urine 0-2 /HPF (0-2); Squamous Epithelial Cell Urine 0-2 /HPF (0-2); WBC Urine 0-5 /HPF (0-5)
== END 2023-08-17 07:45 | disposition home or self-care (01) ==
LOC: HO.LAB 07:44
PROVIDERS: PCP Internal Medicine; Visit Provider Internal Medicine
DX: Z12.5 Encounter for screening for malignant neoplasm of prostate (principal); R10.9 Unspecified abdominal pain; N40.0 Benign prostatic hyperplasia without lower urinary tract symptoms; K21.9 Gastro-esophageal reflux disease without esophagitis
CPT/HCPCS: 36415; 80053; 80061; 81001; 84153; 85025; 86140; 87086

== ENCOUNTER 2024-01-23 15:29 | Outpatient (REF) | payer OTHER, SELFPAY ==
--- NOTE | ~2024-01-23 | XR_ITS ---
EXAMINATION: XR CHEST CLINICAL INFORMATION: Cough COMPARISON: 10/19/1999 TECHNIQUE: 2 views of the chest were obtained. FINDINGS: No consolidation or effusion to suggest pneumonia. Lung volumes are within normal limits. Normal heart and mediastinum. No mass or adenopathy. No pulmonary edema. Normal gas pattern without free air or obstruction. Idiopathic scoliosis. No acute osseous abnormality. XR/XR chest 2V IMPRESSION: No acute cardiopulmonary process detected.
[2024-01-23 15:46] LABS: MANUAL DIFF FLAG NO
[2024-01-23 16:33] LABS: Influenza A PCR NEGATIVE (Negative); Influenza B PCR NEGATIVE (Negative); Resp Syncy Virus RNA Qual PCR NEGATIVE (Negative); SARS COV2 PCR INHOUSE NEGATIVE (Negative)
[2024-01-23 16:54] LABS: Appearance Urine Clear; Color Urine Dark Yellow; Glucose Urine UA Negative (Negative); Leukocyte Esterase Urine Negative (Negative); Nitrite Urine Negative (Negative); PH 5.5 (5.0-9.0); Specific Gravity - Urine 1.025 (1.005-1.025); UMIC TRIGGER UACC YES; Urine Blood Trace (Negative); Urine Ketones Trace mg/dL (Negative); Urine Protein Trace mg/dL (Neg-Trace)
[2024-01-23 16:56] LABS: Bacteria Urine None Seen (None Seen); Hyaline Casts Urine 0-2 /LPF (0-2); Squamous Epithelial Cell Urine 0-2 /HPF (0-2); WBC Urine 0-5 /HPF (0-5)
[2024-01-23 17:01] LABS: Basophils Percent Auto 0.5 % (0-2); Eosinophils Absolute Auto 0.1 X10*3/uL (0.0-0.4); Eosinophils Percent Auto 0.6 % (0-4); Hematocrit 43.3 % (42.0-52.0); Hemoglobin 14.4 g/dl (14.0-18.0); Imm Gran Abs Auto 0.03 X10*3/uL (0.00-0.03); Imm Gran Pct Auto 0.4 % (0.0-0.4); Lymphocytes Absolute Auto 1.5 X10*3/uL (1.2-4.9); Lymphocytes Percent Auto 18.9 % (20-40); Mean Corpuscular HGB Conc 33.3 g/dl (31.0-36.0); Mean Corpuscular Volume 84.2 fL (80.0-98.0); Neutrophils Absolute Auto 5.4 x10*3/uL (2.0-8.3); Neutrophils Percent Auto 67.6 % (45-73); Platelet Count 225 X10*3/uL (160-400); Red Blood Count 5.14 X10*6/uL (4.60-5.80); Red Cell Distribution Width 12.8 % (11.0-16.0)
[2024-01-23 17:55] LABS: Alanine Aminotransferase 16 U/L (0-40); Albumin Level 4.1 g/dL (3.5-5.0); Alkaline Phosphatase 52 U/L (39-117); Anion Gap 12 (12-20); Aspartate Amino Transferase 20 U/L (5-37); Bilirubin Total 0.4 mg/dL (0.0-1.0); Blood Urea Nitrogen 9 mg/dL (9-16); C Reactive Protein 3.61 mg/dL (< or = 0.50); Calcium 9.7 mg/dL (8.4-10.2); Carbon Dioxide 28 mmol/L (22-29); Chloride 104 mmol/L (96-108); Estimated Glomerular Filt Rate > 60; Glucose Random 88 mg/dL (60-115); Potassium 3.8 mmol/L (3.3-5.1); Sodium 140 mmol/L (135-145); Total Protein 7.7 g/dL (6.5-8.0)
== END 2024-01-23 15:30 | disposition home or self-care (01) ==
LOC: HO.LAB 15:29
PROVIDERS: PCP Internal Medicine; Visit Provider Internal Medicine
DX: R05.9 Cough, unspecified (principal); B34.9 Viral infection, unspecified; M25.50 Pain in unspecified joint
CPT/HCPCS: 0241U; 36415; 71046; 80053; 81001; 82550; 85025; 86140

== ENCOUNTER 2025-05-07 08:37 | Day surgery (SDC) | payer OTHER, SELFPAY ==
[2025-05-05 12:42] VITALS: BMI 23.5
--- NOTE | 2025-05-06 13:02 | HO.ANESPROP2 ---
Documented by User: Yana Abebe NP 05/06/25 13:03 HPI - Anesthesia Eval Consult details Narrative: 49 yr old male for upper endoscopy, colonoscopy PMFSH Active Problems Active Problems: All Active Problems Carcinoid tumor (Chronic) Past Medical History Medical History Neuroendocrine tumor GERD (gastroesophageal reflux disease) History of COVID-19 Family History Family History Father Cancer Paternal Grandmother Colon cancer Family history of problems with anesthesia: No Surgical History Surgical History History of tonsillectomy Hx of umbilical hernia repair History of esophagogastroduodenoscopy (EGD) (07/2022) History of Problems with Anesthesia: No Social History Social History Household Members: Spouse, Family and Children Housing: House Are you a primary child care center assistant director to a significant other at home: No Do you presently have visiting nurse or other home services: No Alcohol intake: current Alcohol intake frequency: holidays/special occasions only Patient Tobacco Use Status: Former Tobacco user Have you been hit, kicked, punched, or otherwise hurt by someone within the past year? If so, by whom?: No Are you DNR?: No Advance Directives: No Advance Directives Information Provided: Yes service: No Current occupational status: employed Meds Allergies Allergy/AdvReac Type Severity Reaction Status Date / Time No Known Allergies Allergy Verified 05/07/25 09:14 Home Medications ?Medication ?Instructions ?Recorded ?Confirmed ?Last Taken ?Type cyanocobalamin (vitamin B-12) 1,000 mcg subcut QMONTH 03/27/21 06/05/22 Unknown History 1,000 mcg/mL injection solution pantoprazole 40 mg tablet,delayed 40 mg PO BID 03/27/21 05/05/25 Unknown History release multivitamin 1 tab PO DAILY 04/18/21 06/05/22 Unknown History protein supplement 1 ea PO 3XW 04/18/21 06/05/22 Unknown History vitamin E 268 mg (400 unit) capsule 400 unit PO DAILY 04/18/21 06/05/22 Unknown History zinc 100 mg tablet 100 mg PO DAILY 04/18/21 06/05/22 Unknown History Exam Height,Weight and Vital Signs: Height 5 ft 10 in Weight 74.389 kg Assessment and Plan Final Anesthetic Review Family History of Problems with Anesthesia: No History of Problems with Anesthesia: No Documented by User: Callie Cintron MD 05/07/25 09:15 [facility] Past Medical History Medical History Neuroendocrine tumor GERD (gastroesophageal reflux disease) History of COVID-19 Family History Family History Father Cancer Paternal Grandmother Colon cancer Surgical History Surgical History History of tonsillectomy Hx of umbilical hernia repair History of esophagogastroduodenoscopy (EGD) (07/2022) Social History Social History Household Members: Spouse, Family and Children Housing: House Are you a primary child care center assistant director to a significant other at home: No Do you presently have visiting nurse or other home services: No Alcohol intake: current Alcohol intake frequency: holidays/special occasions only Patient Tobacco Use Status: Former Tobacco user Have you been hit, kicked, punched, or otherwise hurt by someone within the past year? If so, by whom?: No Are you DNR?: No Advance Directives: No Advance Directives Information Provided: Yes service: No Current occupational status: employed Meds Allergies Allergy/AdvReac Type Severity Reaction Status Date / Time No Known Allergies Allergy Verified 05/07/25 09:14 Home Medications ?Medication ?Instructions ?Recorded ?Confirmed ?Last Taken ?Type cyanocobalamin (vitamin B-12) 1,000 mcg subcut QMONTH 03/27/21 06/05/22 Unknown History 1,000 mcg/mL injection solution pantoprazole 40 mg tablet,delayed 40 mg PO BID 03/27/21 05/05/25 Unknown History release multivitamin 1 tab PO DAILY 04/18/21 06/05/22 Unknown History protein supplement 1 ea PO 3XW 04/18/21 06/05/22 Unknown History vitamin E 268 mg (400 unit) capsule 400 unit PO DAILY 04/18/21 06/05/22 Unknown History zinc 100 mg tablet 100 mg PO DAILY 04/18/21 06/05/22 Unknown History Exam Airway Mallampati Class: II TM Dist: >3cm Neck ROM: Full Loose/Missing/Broken Teeth: No Heart: RRR Lungs: CTA Assessment and Plan Assessment Anesthesia Assessment: Anesthesia Plan Discussed and Chart Reviewed Final Anesthetic Review NPO: Yes ASA Class: II Final Preanesthetic Review: Meds/Allgs Chart Reviewed, Consent Obtained/Reviewed and Anes Risks/Benef Reviewed Patient Risk: Low Procedure Risk: Intermediate Anesthetic Plan Anesthetic Plan: MAC: Disposition: Standard PACU
[2025-05-07] MEDS: Lactated Ringers 1,000 ML 100 ML IVCONT (08:54)
[2025-05-07 08:55] VITALS: BP 102/66; PULSE 74; RESP 18; TEMP 36.6; O2SAT 100
[2025-05-07 08:56] VITALS: BMI 22.6
--- NOTE | 2025-05-07 09:44 | MHC.SHP ---
Pre-Procedural Eval Section A - 24 Hr Update-Section A only Date of Service: 05/07/25 The patient is an INPATIENT: No Changes since office visit: No Cold of Flu in the past 2 weeks, No New Medical Problems, No Changes in Medication and No Patient answered all questions The patient has been examined within 24 hours of the surgical procedure. The History & Physical has been completed within 30 days and I have reviewed it.: Yes Section B - Complete if H&P > 30 days Chief Complaint: Benign carcinoid tumor of the stomach Allergies: Allergies Allergy/AdvReac Type Severity Reaction Status Date / Time No Known Allergies Allergy Verified 05/07/25 09:14 Plan I have reviewed the history and physical and performed a pertinent physical examination on my patient. No changes have occurred unless specified. Time Spent With Patient Time: Total time managing care of this patient today ____ minutes.
[2025-05-07 10:38] VITALS: BP 96/61; PULSE 80; RESP 16; TEMP 36.9; O2SAT 95
[2025-05-07 10:45] VITALS: BP 106/70; PULSE 72; RESP 16; O2SAT 95
[2025-05-07 11:00] VITALS: BP 94/61; PULSE 72; RESP 16; TEMP 36.9; O2SAT 95
--- NOTE | 2025-05-07 11:10 | OP_ITS ---
DATE OF SERVICE: 05/07/2025 SURGEON: Bo Hernandez MD INDICATIONS: 1. Gastric carcinoid tumor. 2. Gastric intestinal metaplasia. 3. Colon cancer screening. PREOPERATIVE DIAGNOSIS: POSTOPERATIVE DIAGNOSIS: PROCEDURE PERFORMED: Upper endoscopy with biopsy, colonoscopy to the terminal ileum. ESTIMATED BLOOD LOSS: COMPLICATIONS: ANESTHESIA: Monitored anesthesia care. ASSISTANTS: SPECIMENS: DESCRIPTION OF PROCEDURE: A history and physical was performed. The risks and benefits of the procedure were explained to the patient, and informed consent was obtained. The patient was placed in the left lateral decubitus position. The Olympus video gastroscope was introduced into the esophagus, stomach, and duodenum. Examination was performed. The scope was removed. He was repositioned for colonoscopy. A digital rectal exam was performed and was found to be normal. The Olympus pediatric video colonoscope was introduced into the rectum and advanced to the cecum. The cecum was identified by transillumination, palpation, and identification of ileocecal valve. Examination was performed. The scope was removed. He tolerated the procedure well and was returned to the recovery area in stable condition. FINDINGS: Upper endoscopy: 1. Esophagus: The esophagus was normal. 2. Stomach: The stomach showed no evidence of masses, ulcers, or polyps. Biopsies were obtained from throughout the stomach. There appeared to be no residual tumor on the anterior wall where the previous carcinoid was identified. Vivian ink was identified in the wall of the anterior stomach. 3. Duodenum: The bulb and 2nd portion were normal. Colonoscopy: The terminal ileum was examined and appeared normal. The visualized colonic mucosa was normal. The quality of the prep was good. No polyps were identified. Retroflexed examination showed small internal hemorrhoids. IMPRESSION: 1. Gastric intestinal metaplasia. 2. Carcinoid tumor. 3. Normal colonoscopy. RECOMMENDATION: 1. Follow up the biopsy results. 2. Repeat colonoscopy is recommended in 10 years for average-risk individuals. MD ABIMBOLA Amezcua/EVANGELINA / [id number] MTDD
[2025-05-07 11:15] VITALS: BP 106/68; PULSE 81; RESP 16; O2SAT 100
[2025-05-07 11:30] VITALS: BP 115/82; PULSE 86; RESP 16; TEMP 36.6; O2SAT 100
== END 2025-05-07 12:13 | disposition home or self-care (01) ==
PROVIDERS: PCP Internal Medicine; Visit Provider Internal Medicine Gastroenterology
PROC: (CPT 45378; principal; 2025-05-07 10:10)
DX: Z12.11 Encounter for screening for malignant neoplasm of colon (principal); D3A.092 Benign carcinoid tumor of the stomach; K31.A0 Gastric intestinal metaplasia, unspecified; K64.8 Other hemorrhoids
CPT/HCPCS: 45378; 43239; 88305; 88313; 88341; 88342; J2704